=== PATIENT | female | born 1990 | race Caucasian/White ===

== ENCOUNTER 2017-02-05 13:29 | Outpatient (CLI) | payer MEDICAID ==
[2017-02-05 19:20] LABS: BASOPHILS # (AUTO) 0.1 10^3/uL (0.0-0.1); BASOPHILS % (AUTO) 0.8 %; EOSINOPHILS # (AUTO) 0.2 10^3/uL (0.0-0.7); EOSINOPHILS % (AUTO) 1.3 %; HCT - HEMATOCRIT 42.6 % (37.0-47.0); HGB - HEMOGLOBIN 14.3 g/dL (12.0-16.0); IMMATURE RETIC FRACTION 0.37; LYMPHOCYTES # (AUTO) 3.1 10^3/uL (1.5-3.5); LYMPHOCYTES % (AUTO) 24.6 %; MEAN CORPUSCULAR HEMOGLOBIN 32.5 pg (27.0-31.0); MEAN CORPUSCULAR HGB CONC 33.5 g/dL (32.0-36.0); MEAN PLATELET VOLUME 9.6 fL (7.9-10.8); MONOCYTES # (AUTO) 0.5 10^3/uL (0.0-1.0); MONOCYTES % (AUTO) 4.4 %; NEUTROPHILS # (AUTO) 8.6 10^3/uL (1.5-6.6); NEUTROPHILS % (AUTO) 68.9 %; NUCLEATED RED BLOOD CELLS AUTO 0.1 /100WBC; RED BLOOD COUNT 4.39 10^6/uL (4.20-5.40); RED CELL DISTRIBUTION WIDTH 12.8 % (12.0-15.0); UNCORRECTED WHITE BLOOD COUNT 12.5 x10^3/uL; WHITE BLOOD COUNT 12.5 x10^3/uL (4.8-10.8)
[2017-02-05 19:25] LABS: CHOL/HDL RATIO 3.7 (<4.4); CHOLESTEROL 163 mg/dL; HDL CHOLESTEROL 44 mg/dL; IRON 78 ug/dL (28-170); LDL/HDL RATIO 1.7 (<4.4); TOTAL IRON BINDING CAPACITY 426 ug/dL (250-450); TRANSFERRIN 304 mg/dL (192-382); TRIGLYCERIDES 222 mg/dL; VLDL CHOLESTEROL 44 mg/dL
[2017-02-05 19:44] LABS: FERRITIN 22.5 ng/mL (11.0-306.8)
[2017-02-05 19:57] LABS: THYROID STIMULATING HORMONE 0.93 uIU/mL (0.34-5.60)
== END 2017-02-05 23:59 | disposition home or self-care (01) ==
LOC: LAB.N 13:29
PROVIDERS: ATTEND Physician Assistant
DX: R51 Headache (principal)
CPT/HCPCS: 36415; 80061; 82607; 82728; 83540; 84439; 84443; 84466; 84481; 85025; 85044

== ENCOUNTER 2017-05-27 17:27 | Outpatient (CLI) | payer MEDICAID ==
--- NOTE | 2017-05-28 10:47 | Ultrasound Report ---
RIGHT UPPER QUADRANT ULTRASOUND: 05/27/2017 CLINICAL INDICATION: Epigastric and right upper quadrant pain. TECHNIQUE: Real-time scanning was performed with footwear sales representative static images obtained. FINDINGS: The liver measures 18.7 cm. Hepatic echogenicity is diffusely increased, compatible with fatty infiltration. No focal parenchymal lesion or intrahepatic biliary dilatation is present. The common bile duct measures 6 mm. The gallbladder is normal. The right kidney measures 10.7 cm, and d emonstrates no hydronephrosis. No free fluid is seen. IMPRESSION: FATTY INFILTRATION OF THE LIVER. NO EVIDENCE OF CHOLELITHIASIS OR BILIARY OBSTRUCTION. JOB #: [id number] EXT JOB #:[id number]
== END 2017-05-27 17:28 | disposition home or self-care (01) ==
LOC: DI 17:27
PROVIDERS: ATTEND Physician Assistant Medical
DX: K76.0 Fatty (change of) liver, not elsewhere classified (principal)
CPT/HCPCS: 76705

== ENCOUNTER 2017-06-06 15:58 | Outpatient (CLI) | payer MEDICAID ==
[2017-06-06 13:25] LABS: BILIRUBIN,DIRECT 0.1 mg/dL (0.1-0.5); BILIRUBIN,TOTAL 0.6 mg/dL (0.2-1.0); TOTAL PROTEIN 7.2 g/dL (6.7-8.2)
== END 2017-06-06 15:59 | disposition home or self-care (01) ==
LOC: LAB.N 15:58
PROVIDERS: ATTEND Physician Assistant Medical
DX: R10.13 Epigastric pain (principal); R10.11 Right upper quadrant pain
CPT/HCPCS: 36415; 80076; 83690

== ENCOUNTER 2017-07-02 15:24 | Outpatient (CLI) | payer MEDICAID | END 2017-07-02 15:25 | disposition home or self-care (01) | LOC: LAB.N 15:24 | PROVIDERS: ATTEND Physician Assistant Medical | DX: K30 Functional dyspepsia (principal); R10.13 Epigastric pain; R11.2 Nausea with vomiting, unspecified | CPT/HCPCS: 83013 ==

== ENCOUNTER 2017-09-21 15:59 | Emergency (ER) | payer MEDICAID ==
--- NOTE | 2017-09-21 16:13 | ED Physician Documentation ---
PD HPI ABD PAIN - Stated complaint Stated Complaint: ABD CRAMPING/7 WKS PREG - Chief complaint Chief Complaint: Abd Pain - History obtained from History obtained from: Patient - History of Present Illness Timing - onset: Other (P2, LMP 12-21, she has had pelvic cramping radiating to the right upper quadrants for the last 5 hours. Note made that she had an ultrasound a few months ago for abdominal pains that was negative per her without gallstones. No bleeding. She declines pain medication.) Review of Systems Constitutional: reports: Reviewed and negative Throat: reports: Reviewed and negative Cardiac: reports: Reviewed and negative Respiratory: reports: Reviewed and negative PD PAST MEDICAL HISTORY - Past Medical History Respiratory: Asthma - Past Surgical History Past Surgical History: No - Present Medications Home Medications: Ambulatory Orders Medication Instructions Recorded Confirmed Benzonatate [Tessalon Perle] 100 mg PO Q8H PRN #20 capsule 10/31/14 Control Pills 10/31/14 10/31/14 guaiFENesin/CODEINE [Robitussin AC] 10 ml PO Q6H PRN #120 ml 10/31/14 - Allergies Allergies/Adverse Reactions: Allergies Allergy/AdvReac Type Severity Reaction Status Date / Time latex AdvReac Mild Rash Verified 10/03/15 15:02 - Social History Does the pt smoke?: No Smoking Status: Former smoker Does the pt drink ETOH?: Yes Does the pt have substance abuse?: No PD ED PE NORMAL - Vitals Vital signs reviewed: Yes - General General: Alert and oriented X 3, No acute distress - Respiratory Respiratory: No respiratory distress, Clear bilaterally - Abdomen Abdomen: Normal bowel sounds, Soft, Non tender - Female Female : Other (Pelvic ultrasound demonstrates a full uterus but I am unable to make out details of an intrauterine . There is no free fluid.) - Back Back: No CVA TTP, No spinal TTP - Derm Derm: Normal color, Warm and dry - Extremities Extremities: No deformity, No tenderness to palpate - Neuro Neuro: Alert and oriented X 3, Normal speech - Psych Psych: Normal mood, Normal affect Results - Vitals Vitals: Vital Signs - 24 hr 09/21/17 09/21/17 09/21/17 16:05 16:10 17:24 Temperature 36.7 C Heart Rate 93 87 Respiratory 19 16 Rate Blood Pressure 156/113 H 120/72 O2 Saturation 97 100 Oxygen O2 Source Nasal cannula - Labs Labs: Laboratory Tests 09/21/17 09/21/17 09/21/17 16:33 16:33 16:33 WBC 12.5 H RBC 4.50 Hgb 14.6 Hct 42.3 MCV 94.1 MCH 32.5 H MCHC 34.6 RDW 12.5 Plt Count 256 MPV 9.2 Neut # 8.1 H Lymph # 3.4 [place] # 0.7 Eos # 0.2 Baso # 0.1 Absolute Nucleated RBC 0.00 Nucleated RBC % 0.0 Sodium 134 L Potassium 3.4 L Chloride 104 Carbon Dioxide 21 Anion Gap 9.0 BUN 10 Creatinine 0.6 Estimated GFR (MDRD) 119 Glucose 100 Calcium 9.1 Total Bilirubin 0.5 AST 35 ALT 53 Alkaline Phosphatase 63 Total Protein 7.7 Albumin 4.8 Globulin 2.9 Albumin/Globulin Ratio 1.7 Lipase 29 HCG, Quant 96472.00 Urine Color Urine Clarity Urine pH Ur Specific [place] Urine Protein Urine Glucose (UA) Urine Ketones Urine Occult Blood Urine Nitrite Urine Bilirubin Urine Urobilinogen Ur Leukocyte Esterase Ur Microscopic Review Urine Culture Comments 09/21/17 16:53 WBC RBC Hgb Hct MCV MCH MCHC RDW Plt Count MPV Neut # Lymph # [place] # Eos # Baso # Absolute Nucleated RBC Nucleated RBC % Sodium Potassium Chloride Carbon Dioxide Anion Gap BUN Creatinine Estimated GFR (MDRD) Glucose Calcium Total Bilirubin AST ALT Alkaline Phosphatase Total Protein Albumin Globulin Albumin/Globulin Ratio Lipase HCG, Quant Urine Color LT. YELLOW Urine Clarity CLEAR Urine pH 6.0 Ur Specific [place] 1.025 Urine Protein NEGATIVE Urine Glucose (UA) NEGATIVE Urine Ketones NEGATIVE Urine Occult Blood NEGATIVE Urine Nitrite NEGATIVE Urine Bilirubin NEGATIVE Urine Urobilinogen 0.2 (NORMAL) Ur Leukocyte Esterase NEGATIVE Ur Microscopic Review NOT INDICATED Urine Culture Comments NOT INDICATED - Rads (name of study) Pelvic sono Radiology: EMP read contemporaneously (Single viable IUP, 6 weeks and 2 days) PD MEDICAL DECISION MAKING - ED course ED course: She is abdominal and pelvic pain in , it is more on the right than the left but she is nontender either on initial evaluation and on repeat examination prior to discharge. She does have a little bit of a white count but the story is also inconsistent with appendicitis given the sudden onset. Departure - Departure Disposition: 01 Home, Self Care Clinical Impression: Abdominal pain Qualifiers: Abdominal location: lower abdomen, unspecified Qualified Code(s): R10.30 - Lower abdominal pain, unspecified Qualifiers: Weeks of gestation: less than 8 weeks Qualified Code(s): Z3A.01 - Less than 8 weeks gestation of Condition: Good Record reviewed to determine appropriate education?: Yes Instructions: ED Preg Established Normal Sxs Comments: Follow-up with your OB in a few weeks, take vitamins. Return if worse. Discharge Date/Time: 09/21/17 18:17
[2017-09-21 16:45] LABS: BASOPHILS # (AUTO) 0.1 10^3/uL (0.0-0.1); BASOPHILS % (AUTO) 0.6 %; EOSINOPHILS # (AUTO) 0.2 10^3/uL (0.0-0.7); EOSINOPHILS % (AUTO) 1.2 %; HGB - HEMOGLOBIN 14.6 g/dL (12.0-16.0); LYMPHOCYTES # (AUTO) 3.4 10^3/uL (1.5-3.5); LYMPHOCYTES % (AUTO) 27.2 %; MEAN CORPUSCULAR HEMOGLOBIN 32.5 pg (27.0-31.0); MEAN CORPUSCULAR HGB CONC 34.6 g/dL (32.0-36.0); MEAN CORPUSCULAR VOLUME 94.1 fL (81.0-99.0); MEAN PLATELET VOLUME 9.2 fL (7.9-10.8); MONOCYTES # (AUTO) 0.7 10^3/uL (0.0-1.0); MONOCYTES % (AUTO) 5.7 %; NEUTROPHILS # (AUTO) 8.1 10^3/uL (1.5-6.6); NEUTROPHILS % (AUTO) 65.3 %; PLT - PLATELET COUNT 256 10^3/uL (130-450); RED CELL DISTRIBUTION WIDTH 12.5 % (12.0-15.0); WHITE BLOOD COUNT 12.5 x10^3/uL (4.8-10.8)
[2017-09-21 16:53] LABS: ALBUMIN 4.8 g/dL (3.2-5.5); ALBUMIN/GLOBULIN RATIO 1.7 (1.0-2.2); BILIRUBIN,TOTAL 0.5 mg/dL (0.2-1.0); CALCIUM 9.1 mg/dL (8.5-10.3); CREATININE 0.6 mg/dL (0.4-1.0); TOTAL PROTEIN 7.7 g/dL (6.7-8.2)
[2017-09-21 16:55] LABS: BILIRUBIN,URINE NEGATIVE (NEGATIVE); GLUCOSE, URINE (UA) NEGATIVE (NEGATIVE); KETONES,URINE (UA) NEGATIVE (NEGATIVE); LEUKOCYTE ESTERASE, URINE NEGATIVE (NEGATIVE); NITRITE,URINE NEGATIVE (NEGATIVE); OCCULT BLOOD,URINE NEGATIVE (NEGATIVE); PROTEIN,URINE NEGATIVE (NEGATIVE); UROBILINOGEN,URINE 0.2 (NORMAL) E.U./dL (NORMAL)
[2017-09-21 17:00] LABS: CLARITY,URINE CLEAR (CLEAR)
[2017-09-21 17:29] VITALS: BP 120/72
--- NOTE | 2017-09-21 18:25 | Ultrasound Preliminary Report ---
Exam: US OB FIRST TRIMESTER IMPRESSION: 1. Single viable intrauterine at EGA 6 weeks 2 days with ELZA 05/15/2018 based on crown-rump length, which is concordant with expected dates based on LMP. 2. Assigned dating is ELZA 05/15/2018 based on LMP. [facility] SITE ID: [id number]
--- NOTE | 2017-09-21 18:25 | Ultrasound Report ---
EXAM: FIRST TRIMESTER OBSTETRIC ULTRASOUND (Less than 11 weeks) EXAM DATE: 09/21/2017 06:04 PM. CLINICAL HISTORY: . Pelvic pain. LMP: 08/08/2017. COMPARISONS: None. TECHNIQUE: Transabdominal and transvaginal ultrasound examination with static image documentation. CLINICAL DATES: EGA 6 weeks 2 days with ELZA 05/15/2018 based on LMP 08/08/2017. ASSESSMENT: Gestational Sac: Single intrauterine. Normal shape. Embryo: CRL (crown-rump length) 4 mm = 6 weeks 2 days. Cardiac activity: 127 beats per minute. Yolk sac: 3 mm. Amniotic fluid: Not accurately assessed at this gestational age. Early placenta: Not visible at this gestational age. Other: No perigestational fluid collection demonstrated. MATERNAL STRUCTURES: Uterus: Retroverted. Unremarkable. Cervix: Closed. Right Ovary/Adnexa: Unremarkable. The ovary measures 3.6 x 1.6 x 2.0 cm, volume 6.0 cc. Left Ovary/Adnexa: Unremarkable. The ovary is not visualized. Free Fluid: None. Other: None. IMPRESSION: 1. Single viable intrauterine at EGA 6 weeks 2 days with ELZA 05/15/2018 based on crown-rump length, which is concordant with expected dates based on LMP. 2. Assigned dating is ELZA 05/15/2018 based on LMP. [facility] Referring Provider Line: [phone] SITE ID: [id number]
== END 2017-09-21 18:17 | disposition home or self-care (01) ==
LOC: ED 15:59
DX: O26.891 Other specified pregnancy related conditions, first trimester (principal); R10.30 Lower abdominal pain, unspecified; Z3A.01 Less than 8 weeks gestation of pregnancy; J45.909 Unspecified asthma, uncomplicated; Z87.891 Personal history of nicotine dependence
CPT/HCPCS: 36415; 76801; 76817; 80053; 81001; 81003; 83690; 84702; 85025; 87086; 99283

== ENCOUNTER 2017-10-08 10:00 | Outpatient (CLI) | payer MEDICAID ==
[2017-10-08 13:15] LABS: BASOPHILS # (AUTO) 0.1 10^3/uL (0.0-0.1); BASOPHILS % (AUTO) 0.6 %; EOSINOPHILS # (AUTO) 0.3 10^3/uL (0.0-0.7); EOSINOPHILS % (AUTO) 2.9 %; LYMPHOCYTES # (AUTO) 2.5 10^3/uL (1.5-3.5); LYMPHOCYTES % (AUTO) 22.1 %; MEAN CORPUSCULAR HEMOGLOBIN 33.1 pg (27.0-31.0); MEAN CORPUSCULAR HGB CONC 35.2 g/dL (32.0-36.0); MEAN CORPUSCULAR VOLUME 93.9 fL (81.0-99.0); MEAN PLATELET VOLUME 9.7 fL (7.9-10.8); MONOCYTES # (AUTO) 0.5 10^3/uL (0.0-1.0); MONOCYTES % (AUTO) 4.5 %; NEUTROPHILS # (AUTO) 7.9 10^3/uL (1.5-6.6); NEUTROPHILS % (AUTO) 69.9 %; PLT - PLATELET COUNT 231 10^3/uL (130-450); RED BLOOD COUNT 4.23 10^6/uL (4.20-5.40); RED CELL DISTRIBUTION WIDTH 12.5 % (12.0-15.0); WHITE BLOOD COUNT 11.3 x10^3/uL (4.8-10.8)
[2017-10-09 12:31] LABS: HIV AG/AB 4TH GEN NON-REACTIVE (NON-REACTIVE)
[2017-10-09 14:01] LABS: HEPATITIS B SURFACE ANTIGEN NON-REACTIVE (NON-REACTIVE); HEPATITIS C ANTIBODY NON-REACTIVE (NON-REACTIVE)
== END 2017-10-08 10:01 | disposition home or self-care (01) ==
LOC: LAB.N 10:00
PROVIDERS: ATTEND Obstetrics & Gynecology
DX: Z36.9 Encounter for antenatal screening, unspecified (principal)
CPT/HCPCS: 36415; 81001; 81003; 81599; 85025; 86592; 86762; 86803; 86850; 86900; 86901; 87340; 87389

== ENCOUNTER 2017-11-05 09:09 | Outpatient (CLI) | payer MEDICAID | END 2017-11-05 09:10 | disposition home or self-care (01) | LOC: LAB 09:09 | PROVIDERS: ATTEND Obstetrics & Gynecology | DX: Z36.9 Encounter for antenatal screening, unspecified (principal) | CPT/HCPCS: 36415 ==

== ENCOUNTER 2018-02-06 07:38 | Outpatient (CLI) | payer MEDICAID ==
--- NOTE | 2018-02-06 13:08 | Ultrasound Report ---
Procedure Date: 02/06/2018 Accession Number: [id number] / [id number] Procedure: US - OB Detailed Eval CPT Code: FULL RESULT: EXAM: OB Detailed Eval DATE: 02/06/2018 11:30 AM CLINICAL HISTORY: ENCOUNTER FOR OTHER SPECIFIED SCREENING TECHNIQUE: Real-time scanning was performed with customer counter representative static images obtained. COMPARISON: None LAST MENSTRUAL PERIOD: 09/21/2017 Clinical Age: 26 weeks 0 days US Age: 26 weeks 4 days EFW Hadlock: 971 grams EFW % Hadlock: 61% Heart Rate: 137 bpm EDC: 05/15/2018 US EDC: 05/11/2018 BPD Hadlock: 27 weeks 2 days; Mean mm 68 HC Hadlock: 27 weeks 0 days; Mean mm 249 AC Hadlock: 27 weeks 1 days; Mean mm 227 FL Hadlock: 26 weeks 0 days; Mean mm 48 Presentation: Breech Placental Location: Posterior Cervical Length: 4.6 cm Amniotic Fluid: TATYANA Subjectively normal cm; MVP 6.0 cm FINDINGS: The following anatomic structures were imaged and appear normal: The intracranial contents, including the ventricles and posterior fossa; the lips and orbits; the spine; the heart, including 4 chamber view and outflow tracts, and diaphragm; the abdominal contents, including the stomach, the bilateral kidneys, and urinary bladder, as well as a normal 3-vessel cord insertion; 4 limbs. IMPRESSION: Single intrauterine gestation age by composite ultrasound measurements today and expected age by LMP are concordant. EDC based on LMP 05/15/2018. No anatomic anomalies are identified.
== END 2018-02-06 07:39 | disposition home or self-care (01) ==
LOC: DI 07:38
PROVIDERS: ATTEND Obstetrics & Gynecology
DX: Z36.89 Encounter for other specified antenatal screening (principal)
CPT/HCPCS: 76811

== ENCOUNTER 2018-05-18 12:24 | Emergency (ER) | payer MEDICAID ==
[2018-05-18] MEDS ORDERED: oxyCODONE 5 MG TABLET PO STA (13:12)
--- NOTE | 2018-05-18 13:26 | ED Physician Documentation ---
History of Present Illness - Stated complaint Stated Complaint: POST CESEREAN PAIN - Chief complaint Chief Complaint: Wound - Additonal information Additional information: hx from pt 5 days s/p emergent c section and demise surgery at [facility] to ER today with post op pain out of ehr percocet has fup Saturday no fever bleeding has slowed to 1 pad per day no foul smelling discharge Review of Systems Constitutional: denies: Fever Cardiac: denies: Chest pain / pressure Respiratory: denies: Dyspnea GI: reports: Abdominal Pain : denies: Now EGA PD PAST MEDICAL HISTORY - Past Medical History Respiratory: Asthma - Past Surgical History 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 - Present Medications Home Medications: Ambulatory Orders Medication Instructions Recorded Confirmed Ibuprofen 800 mg PO TID 05/18/18 05/18/18 Oxycodone HCl/Acetaminophen 1 each PO Q6HR PRN #15 tablet 05/18/18 [Percocet 5-325 mg Tablet] oxyCODONE/ACET 5/325 [Percocet 5 1 each PO Q4-6H 05/18/18 05/18/18 mg/325 mg] - Allergies Allergies/Adverse Reactions: Allergies Allergy/AdvReac Type Severity Reaction Status Date / Time latex AdvReac Mild Rash Verified 10/03/15 15:02 adhesive tape AdvReac Rash Verified 05/18/18 12:47 - Social History Does the pt smoke?: No Smoking Status: Never smoker Does the pt drink ETOH?: Yes Does the pt have substance abuse?: No - Immunizations Immunizations are current?: Yes - POLST Patient has POLST: No PD ED PE NORMAL - Vitals Vital signs reviewed: Yes - Abdomen Abdomen: Soft, Other (tender lower abd - uterus palpates about 2/3 wa to umbilicus and is mod TTP) - Derm Derm: Normal color Results - Vitals Vitals: Vital Signs - 24 hr 05/18/18 12:42 Temperature 37 C Heart Rate 75 Respiratory 18 Rate Blood Pressure 137/83 H O2 Saturation 98 Oxygen O2 Source Room air PD MEDICAL DECISION MAKING - ED course ED course: post op pain abd TTP and uterus a bit enlarged but no fever and incision looks good and doubt retained product or endometritis will tx pain and pt has close speciality follow up - Sepsis Event Vital Signs: Vital Signs - 24 hr 05/18/18 12:42 Temperature 37 C Heart Rate 75 Respiratory 18 Rate Blood Pressure 137/83 H O2 Saturation 98 Oxygen O2 Source Room air Departure - Departure Disposition: 01 Home, Self Care Clinical Impression: Post-operative pain Condition: Good Instructions: ED Post Op Pain Prescriptions: Oxycodone HCl/Acetaminophen [Percocet 5-325 mg Tablet] 1 each PO Q6HR PRN #15 tablet PRN Reason: Severe Pain Comments: This incision does not appear infected Your uterus still feels enlarged But you wouldn't have retained placenta etc after a I have refilled your percocet. You can also take motrin as needed Please follow up with your OBGYN this week as scheduled
[2018-05-18 13:33] VITALS: BP 132/70
== END 2018-05-18 13:33 | disposition home or self-care (01) ==
LOC: ED 12:24
DX: G89.18 Other acute postprocedural pain (principal)
CPT/HCPCS: 99283; A9270

== ENCOUNTER 2018-08-18 11:50 | Emergency (ER) | payer MEDICAID ==
--- NOTE | 2018-08-18 12:16 | ED Physician Documentation ---
PD HPI ABD PAIN - Stated complaint Stated Complaint: LEFT SIDE PX - History obtained from History obtained from: Patient - History of Present Illness Timing - onset: Other (28-year-old woman with about 2 days of increasing left flank pain radiating to the left pelvis associated with urinary frequency and nausea but no fevers. She wonders if it might be related to the stat she had a few months ago.) Review of Systems Constitutional: denies: Fever, Chills Respiratory: denies: Dyspnea, Cough GI: reports: Abdominal Pain, Nausea. denies: Vomiting, Constipation, Diarrhea, Hematemesis : reports: Frequency. 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 - Present Medications Home Medications: Ambulatory Orders Medication Instructions Recorded Confirmed Ibuprofen 800 mg PO TID 05/18/18 05/18/18 Oxycodone HCl/Acetaminophen 1 each PO Q6HR PRN #15 tablet 05/18/18 [Percocet 5-325 mg Tablet] oxyCODONE/ACET 5/325 [Percocet 5 1 each PO Q4-6H 05/18/18 05/18/18 mg/325 mg] Hydrocodone/Acetaminophen 1 - 2 each PO Q6H PRN #14 tablet 08/18/18 [Hydrocodon-Acetaminophen 5-325] - Allergies Allergies/Adverse Reactions: Allergies Allergy/AdvReac Type Severity Reaction Status Date / Time latex AdvReac Mild Rash Verified 10/03/15 15:02 adhesive tape AdvReac Rash Verified 05/18/18 12:47 - Social History Does the pt smoke?: No Smoking Status: Never smoker Does the pt drink ETOH?: Yes Does the pt have substance abuse?: No - Immunizations Immunizations are current?: Yes - POLST Patient has POLST: No PD ED PE NORMAL - Vitals Vital signs reviewed: Yes - General General: Alert and oriented X 3, No acute distress - Respiratory Respiratory: No respiratory distress, Clear bilaterally - Abdomen Abdomen: Normal bowel sounds, Soft, Non tender - Back Back: No CVA TTP, No spinal TTP - Neuro Neuro: Alert and oriented X 3, Normal speech - Psych Psych: Normal mood, Normal affect Results - Vitals Vitals: Vital Signs - 24 hr 08/18/18 13:25 Temperature 36.3 C L Heart Rate 88 Respiratory 18 Rate Blood Pressure 135/72 H O2 Saturation 100 Oxygen O2 Source Room air - Labs Labs: Laboratory Tests 08/18/18 08/18/18 08/18/18 12:13 13:45 13:45 WBC 8.8 RBC 4.46 Hgb 14.1 Hct 40.7 MCV 91.2 MCH 31.6 H MCHC 34.7 RDW 14.8 Plt Count 268 MPV 8.8 Neut # (Auto) 6.0 Lymph # (Auto) 2.1 [place] # (Auto) 0.6 Eos # (Auto) 0.1 Baso # (Auto) 0.1 Absolute Nucleated RBC 0.00 Nucleated RBC % 0.0 Sodium 137 Potassium 3.7 Chloride 103 Carbon Dioxide 25 Anion Gap 9.0 BUN 11 Creatinine 0.8 Estimated GFR (MDRD) 85 L Glucose 99 Calcium 9.2 Total Bilirubin 0.8 AST 34 ALT 42 Alkaline Phosphatase 71 Total Protein 7.4 Albumin 4.5 Globulin 2.9 Albumin/Globulin Ratio 1.6 Lipase 40 Urine Color YELLOW Urine Clarity CLEAR Urine pH 7.0 Ur Specific [place] 1.010 Urine Protein NEGATIVE Urine Glucose (UA) NEGATIVE Urine Ketones NEGATIVE Urine Occult Blood NEGATIVE Urine Nitrite NEGATIVE Urine Bilirubin NEGATIVE Urine Urobilinogen 0.2 (NORMAL) Ur Leukocyte Esterase NEGATIVE Ur Microscopic Review NOT INDICATED Urine Culture Comments NOT INDICATED Urine HCG, Qual NEGATIVE - Rads (name of study) CT KUB Radiology: EMP read contemporaneously (NAD) PD MEDICAL DECISION MAKING - ED course ED course: 28-year-old woman with left flank pain that seems most consistent with renal colic or pyelonephritis. She has a normal exam. Unremarkable blood work and urine. An unremarkable CT abdomen and pelvis. Could Be muscular. Close watchful waiting was advised. Departure - Departure Disposition: 01 Home, Self Care Clinical Impression: Left flank pain Condition: Good Record reviewed to determine appropriate education?: Yes Instructions: ED Abdominal Pain Unkn Cause Prescriptions: Hydrocodone/Acetaminophen [Hydrocodon-Acetaminophen 5-325] 1 - 2 each PO Q6H PRN #14 tablet PRN Reason: pain Comments: Return for new or worsening symptoms. Return in 24 hours if not better, anytime if worse. Do not drink or drive while taking narcotic pain medication. Note that many narcotic pain relievers also contain Tylenol/acetaminophen. Please ensure that your total dose of acetaminophen from all sources does not exceed 3 g (3000 mg) per day. You may get constipated while on this medication. Take a stool softener such as Colace twice a day while you are on it. Also add an [id number] laxative such as senna or MiraLAX on any day that you do not have a bowel movement. If you received a narcotic pain medication or sedative while in the emergency department, do not drive for the next 24 hours.
[2018-08-18 12:31] LABS: BILIRUBIN,URINE NEGATIVE (NEGATIVE); CLARITY,URINE CLEAR (CLEAR); GLUCOSE, URINE (UA) NEGATIVE (NEGATIVE); KETONES,URINE (UA) NEGATIVE (NEGATIVE); LEUKOCYTE ESTERASE, URINE NEGATIVE (NEGATIVE); NITRITE,URINE NEGATIVE (NEGATIVE); OCCULT BLOOD,URINE NEGATIVE (NEGATIVE); PROTEIN,URINE NEGATIVE (NEGATIVE); UROBILINOGEN,URINE 0.2 (NORMAL) E.U./dL (NORMAL)
[2018-08-18 12:38] LABS: HCG UR QUAL NEGATIVE
[2018-08-18] MEDS ORDERED: IBUPROFEN 800 MG TABLET PO STA (12:40)
--- NOTE | 2018-08-18 13:35 | CT Report ---
Reason: L flank pain Procedure Date: 08/18/2018 Accession Number: [id number] / [id number] Procedure: CT - Abdomen/Pelvis W/O CPT Code: FULL RESULT: EXAM: CT ABDOMEN AND PELVIS (CT KUB) EXAM DATE: 08/18/2018 01:15 PM. CLINICAL HISTORY: L flank pain. COMPARISONS: None. TECHNIQUE: Routine axial helical CT imaging was performed through the abdomen and pelvis without IV contrast. Reconstructions: Coronal and sagittal. In accordance with CT protocol optimization, one or more of the following dose reduction techniques were utilized for this exam: automated exposure control, adjustment of mA and/or KV based on patient size, or use of iterative reconstructive technique. FINDINGS: Lung Bases: Unremarkable. Right Kidney/Ureter: No stones, hydronephrosis, or hydroureter. No perinephric fat stranding. Left Kidney/Ureter: No stones, hydronephrosis, or hydroureter. No perinephric fat stranding. Other Solid Organs: The liver measures 19 cm cranial caudal. Liver parenchyma is diffusely low in density with focal fatty sparing around the gallbladder. Spleen, pancreas and adrenal glands are unremarkable. Gallbladder/Bile Ducts: Unremarkable. Peritoneal Cavity: No free fluid, free air or tiffany adenopathy. Bowel is grossly unremarkable. Pelvic Organs: Uterus is anteverted. Ovaries appear overall normal in size for age. No abnormal pelvic fluid collection. The appendix is visualized and appears normal. Vasculature: Unremarkable. Other: None. IMPRESSION: 1. No urolithiasis or hydronephrosis. 2. No CT finding to explain symptoms. 3. Steatosis of the liver. RADIA
[2018-08-18 13:59] LABS: BASOPHILS # (AUTO) 0.1 10^3/uL (0.0-0.1); BASOPHILS % (AUTO) 0.9 %; EOSINOPHILS # (AUTO) 0.1 10^3/uL (0.0-0.7); EOSINOPHILS % (AUTO) 1.1 %; HGB - HEMOGLOBIN 14.1 g/dL (12.0-16.0); LYMPHOCYTES # (AUTO) 2.1 10^3/uL (1.5-3.5); LYMPHOCYTES % (AUTO) 23.7 %; MEAN CORPUSCULAR HEMOGLOBIN 31.6 pg (27.0-31.0); MEAN CORPUSCULAR HGB CONC 34.7 g/dL (32.0-36.0); MEAN CORPUSCULAR VOLUME 91.2 fL (81.0-99.0); MEAN PLATELET VOLUME 8.8 fL (7.9-10.8); MONOCYTES # (AUTO) 0.6 10^3/uL (0.0-1.0); MONOCYTES % (AUTO) 6.3 %; PLT - PLATELET COUNT 268 10^3/uL (130-450); RED BLOOD COUNT 4.46 10^6/uL (4.20-5.40); RED CELL DISTRIBUTION WIDTH 14.8 % (12.0-15.0); WHITE BLOOD COUNT 8.8 x10^3/uL (4.8-10.8)
[2018-08-18 14:13] LABS: ALBUMIN 4.5 g/dL (3.2-5.5); ALBUMIN/GLOBULIN RATIO 1.6 (1.0-2.2); BILIRUBIN,TOTAL 0.8 mg/dL (0.2-1.0); CALCIUM 9.2 mg/dL (8.5-10.3); CREATININE 0.8 mg/dL (0.4-1.0); TOTAL PROTEIN 7.4 g/dL (6.7-8.2)
[2018-08-18] MEDS ORDERED: HYDROcod/ACETAM 5/325 MG TABLET PO STA (14:20)
[2018-08-18 14:22] VITALS: BP 129/73
== END 2018-08-18 14:30 | disposition home or self-care (01) ==
LOC: ED 11:50
DX: R10.9 Unspecified abdominal pain (principal)
CPT/HCPCS: 36415; 74176; 80053; 81003; 81025; 83690; 85025; 99283; A9270; 81001; 87086

== ENCOUNTER 2018-09-16 17:26 | Outpatient (CLI) | payer MEDICAID | END 2018-09-16 23:59 | disposition home or self-care (01) | LOC: LAB.R 17:26 | PROVIDERS: ATTEND Nurse Practitioner Obstetrics & Gynecology | DX: R10.814 Left lower quadrant abdominal tenderness (principal); B37.3 Candidiasis of vulva and vagina; O90.0 Disruption of cesarean delivery wound | CPT/HCPCS: 87086; 87480; 87510; 87660 ==

== ENCOUNTER 2018-09-17 08:00 | Outpatient (CLI) | payer MEDICAID ==
[2018-09-17 13:01] LABS: BASOPHILS # (AUTO) 0.1 10^3/uL (0.0-0.1); BASOPHILS % (AUTO) 1.2 %; EOSINOPHILS # (AUTO) 0.3 10^3/uL (0.0-0.7); EOSINOPHILS % (AUTO) 3.6 %; HGB - HEMOGLOBIN 14.6 g/dL (12.0-16.0); LYMPHOCYTES # (AUTO) 2.4 10^3/uL (1.5-3.5); MEAN CORPUSCULAR HEMOGLOBIN 31.3 pg (27.0-31.0); MEAN CORPUSCULAR HGB CONC 33.8 g/dL (32.0-36.0); MEAN CORPUSCULAR VOLUME 92.7 fL (81.0-99.0); MEAN PLATELET VOLUME 10.1 fL (7.9-10.8); MONOCYTES # (AUTO) 0.5 10^3/uL (0.0-1.0); NEUTROPHILS # (AUTO) 5.2 10^3/uL (1.5-6.6); NEUTROPHILS % (AUTO) 61.2 %; PLT - PLATELET COUNT 247 10^3/uL (130-450); RED BLOOD COUNT 4.66 10^6/uL (4.20-5.40); RED CELL DISTRIBUTION WIDTH 14.5 % (12.0-15.0); WHITE BLOOD COUNT 8.5 x10^3/uL (4.8-10.8)
== END 2018-09-17 23:59 | disposition home or self-care (01) ==
LOC: LAB.N 08:00
PROVIDERS: ATTEND Nurse Practitioner Obstetrics & Gynecology
DX: R10.814 Left lower quadrant abdominal tenderness (principal); O90.0 Disruption of cesarean delivery wound
CPT/HCPCS: 36415; 84702; 85025

== ENCOUNTER 2018-09-18 04:51 | Outpatient (CLI) | payer MEDICAID ==
--- NOTE | 2018-09-18 11:35 | Ultrasound Report ---
Reason: ABDOMINAL TENDERNESS,LEFT LOWER QUADRANT,DISRUPTIO Procedure Date: 09/18/2018 Accession Number: [id number] / [id number] Procedure: US - Pelvic w/Transvaginal CPT Code: FULL RESULT: EXAM: PELVIC ULTRASOUND EXAM DATE: 09/18/2018 05:48 AM. CLINICAL HISTORY: Abdominal tenderness, left lower quadrant. COMPARISON: ABDOMEN/PELVIS W/O 08/18/2018 1:01 PM. TECHNIQUE: Realtime transabdominal pelvic scan performed to identify the uterus and adnexa and as an overview of other pelvic structures, followed by transvaginal scan to provide greater detail of the uterus and adnexa, with static image documentation. FINDINGS: Uterus: 8.8 x 5.5 x 4.4 cm, volume 111 cc. Anteverted position. Normal overall size and echotexture. Masses: An anterior fundal fibroid, intramural measures 2.2 x 1.2 cm. Endometrium: 8 mm. Normal. Cervix: Unremarkable. Right Ovary: 3.8 x 2.0 x 2.1 cm, volume 8.3 cc. Normal echotexture and blood flow. Left Ovary: 2.7 x 2.9 x 1.9 cm, volume 10.6 cc. The left ovary is not well seen and the only visualized transabdominally due to its location. Within the left ovary is a 1.3 x 0.8 x 0.8 cm hyperechoic lesion which is not well characterized. Free Fluid: None. Other: None. IMPRESSION: Limited visualization of a hyperechoic 1.3 cm left ovarian lesion. RADIA
== END 2018-09-18 04:52 | disposition home or self-care (01) ==
LOC: DI 04:51
PROVIDERS: ATTEND Nurse Practitioner Obstetrics & Gynecology
DX: N83.9 Noninflammatory disorder of ovary, fallopian tube and broad ligament, unspecified (principal)
CPT/HCPCS: 76830; 76856

== ENCOUNTER 2018-09-25 15:12 | Outpatient (CLI) | payer MEDICAID ==
--- NOTE | 2018-09-25 17:51 | Ultrasound Report ---
Reason: LLQ PAIN, F/U LT OV Procedure Date: 09/25/2018 Accession Number: [id number] / [id number] Procedure: US - Pelvic Complete CPT Code: FULL RESULT: EXAM: PELVIC ULTRASOUND EXAM DATE: 09/25/2018 04:07 PM. CLINICAL HISTORY: LLQ PAIN, F/U LT OV. COMPARISON: 09/18/2018 TECHNIQUE: Realtime transabdominal pelvic scan performed to identify the uterus and adnexa and as an overview of other pelvic structures, patient refused transvaginal imaging. with static image documentation. FINDINGS: Uterus: 11.2 x 3.9 x 7.0 cm, volume 160 cc. Anteverted position. Normal overall size and echotexture. Masses: None. Endometrium: 3 mm. No focal endometrial abnormalities. Cervix: Unremarkable. Right Ovary: 3.2 x 2.0 x 2.5 cm, volume 8.2 cc. Blood flow is demonstrated. Left Ovary: 4.2 x 2.9 x 3.4 cm, volume 21.3 cc. Blood flow is demonstrated. Simple cyst measuring 2.4 cm. Previously described echogenic lesion is not visualized. Free Fluid: None. Other: None. IMPRESSION: No acute sonographic abnormalities. RADIA
== END 2018-09-25 15:13 | disposition home or self-care (01) ==
LOC: DI 15:12
PROVIDERS: ATTEND Nurse Practitioner Obstetrics & Gynecology
DX: R10.814 Left lower quadrant abdominal tenderness (principal)
CPT/HCPCS: 76856

== ENCOUNTER 2018-12-18 09:45 | Outpatient (CLI) | payer MEDICAID ==
--- NOTE | 2018-12-18 21:57 | XRAY Report ---
Reason: WRIST JOINT PAIN,RIGHT Procedure Date: 12/18/2018 Accession Number: [id number] / [id number] Procedure: XRN - Hand 3 View RT CPT Code: FULL RESULT: EXAM: RIGHT HAND RADIOGRAPHY EXAM DATE: 12/18/2018 10:02 AM. CLINICAL HISTORY: Right hand pain, fall COMPARISON: None. TECHNIQUE: 3 views. FINDINGS: Bones: Normal. No fractures or bone lesions. Joints: Normal. No subluxations. Soft Tissues: Normal. No soft tissue swelling. IMPRESSION: Normal hand radiography. RADIA
== END 2018-12-18 09:46 | disposition home or self-care (01) ==
LOC: DI.N 09:45
PROVIDERS: ATTEND Physician Assistant Medical
DX: M25.531 Pain in right wrist (principal)

== ENCOUNTER 2019-02-16 10:56 | Outpatient (CLI) | payer MEDICAID ==
[2019-02-16 18:45] LABS: MEAN CORPUSCULAR HEMOGLOBIN 32.5 pg (27.0-31.0); MEAN CORPUSCULAR HGB CONC 33.3 g/dL (32.0-36.0); MEAN CORPUSCULAR VOLUME 97.8 fL (81.0-99.0); MEAN PLATELET VOLUME 11.8 fL (7.9-10.8); RED BLOOD COUNT 4.61 10^6/uL (4.20-5.40); RED CELL DISTRIBUTION WIDTH 13.2 % (12.0-15.0); WHITE BLOOD COUNT 11.5 x10^3/uL (4.8-10.8)
[2019-02-16 18:52] LABS: RHEUMATOID FACTOR NEGATIVE (Negative)
[2019-02-18 12:36] LABS: ANA SCREEN NEGATIVE (NEGATIVE)
== END 2019-02-16 23:59 | disposition home or self-care (01) ==
LOC: LAB.N 10:56
PROVIDERS: ATTEND Family Medicine
DX: R10.9 Unspecified abdominal pain (principal); R19.7 Diarrhea, unspecified
CPT/HCPCS: 36415; 81599; 82784; 83516; 85027; 85651; 86038; 86140; 86430

== ENCOUNTER 2021-09-22 18:30 | Outpatient (CLI) | payer MEDICAID | END 2021-09-22 23:59 | disposition home or self-care (01) | LOC: LAB 18:30 | PROVIDERS: ATTEND Physician Assistant | DX: R09.81 Nasal congestion (principal); Z20.822 Contact with and (suspected) exposure to COVID-19 ==

== ENCOUNTER 2022-01-03 08:00 | Outpatient (CLI) | payer MEDICAID ==
[2022-01-03 17:44] LABS: BASOPHILS % (AUTO) 0.6 %; EOSINOPHILS % (AUTO) 0.6 %; HCT - HEMATOCRIT 37.2 % (37.0-47.0); HGB - HEMOGLOBIN 11.9 g/dL (12.0-16.0); LYMPHOCYTES # (AUTO) 0.3 10^3/uL (1.5-3.5); MEAN CORPUSCULAR HEMOGLOBIN 29.3 pg (27.0-31.0); MEAN CORPUSCULAR VOLUME 91.6 fL (81.0-99.0); MEAN PLATELET VOLUME 11.4 fL (7.9-10.8); MONOCYTES # (AUTO) 0.5 10^3/uL (0.0-1.0); MONOCYTES % (AUTO) 9.1 %; NEUTROPHILS # (AUTO) 4.2 10^3/uL (1.5-6.6); NEUTROPHILS % (AUTO) 84.5 %; PLT - PLATELET COUNT 278 10^3/uL (130-450); RED BLOOD COUNT 4.06 10^6/uL (4.20-5.40); RED CELL DISTRIBUTION WIDTH 14.1 % (12.0-15.0)
[2022-01-03 18:05] LABS: ALBUMIN 4.8 g/dL (3.2-5.5); ALBUMIN/GLOBULIN RATIO 1.7 (1.0-2.2); BILIRUBIN,TOTAL 0.8 mg/dL (0.2-1.0); CREATININE 0.8 mg/dL (0.4-1.0); POTASSIUM 3.6 mmol/L (3.5-5.0); TOTAL PROTEIN 7.7 g/dL (6.7-8.2)
== END 2022-01-04 23:36 | disposition home or self-care (01) ==
LOC: LAB.N 08:00
PROVIDERS: ATTEND Nurse Practitioner
DX: R10.2 Pelvic and perineal pain (principal)
CPT/HCPCS: 36415; 80053; 85025; 87086

== ENCOUNTER 2022-01-15 18:27 | Emergency (ER) | payer MEDICAID ==
--- OUTSIDE RECORDS SUMMARY | 2022-01-15 18:58 | EXTERNAL MEDICAL SUMMARY RPT | Continuity of Care Document ---
:1990 Author Organization [facility] Address [address] [place] [address] Phone Care Team Providers Name Role Phone [place] Unavailable Unavailable Allergies No information. Encounters No information. Medications date description facility [id number] Cephalexin 500 MG Oral Tablet [facility] Problems Procedures date description facility [id number] [facility] Results No information. Vital Signs date measurement value source 20220115 weight_standard 80.29 lb 20220115 weight_metric 36.42 kg 20220115 temperature_standard 98.5 F 20220115 temperature_metric 36.94 C 20220115 respiration_rate 18 /min 20220115 height_standard 64 in [id number] height_metric 162.56 cm 20220115 heart_rate 114 /min 20220115 BP_systolic 158 mm[Hg] 20220115 BP_diastolic 85 mm[Hg] 20220115 BMI 30.4 kg/m2
[2022-01-15] MEDS ORDERED: BACITRACIN ZINC OINT 1 PACKET TOP STA (19:55)
[2022-01-15] MEDS ORDERED: oxyCODONE 5 MG TABLET PO STA (19:55)
[2022-01-15] MEDS ORDERED: cephALEXin 250 MG CAPSULE PO STA (19:55)
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
[2022-01-15 20:25] VITALS: BP 130/80
== END 2022-01-15 20:24 | disposition home or self-care (01) ==
LOC: ED 18:27
DX: L03.114 Cellulitis of left upper limb (principal); L03.113 Cellulitis of right upper limb; T22.322A Burn of third degree of left elbow, initial encounter; T23.372A Burn of third degree of left wrist, initial encounter; T22.012A Burn of unspecified degree of left forearm, initial encounter; T22.011A Burn of unspecified degree of right forearm, initial encounter; T23.051A Burn of unspecified degree of right palm, initial encounter; T31.0 Burns involving less than 10% of body surface; X03.3XXA Fall due to controlled fire, not in building or structure, initial encounter; Y93.89 Activity, other specified; Y92.833 Campsite as the place of occurrence of the external cause
CPT/HCPCS: 16020; 99282; 99283; A9270

== ENCOUNTER 2022-02-26 16:30 | Outpatient (CLI) | payer MEDICAID | END 2022-02-26 16:31 | disposition home or self-care (01) | LOC: LAB.N 16:30 | PROVIDERS: ATTEND Physician Assistant Medical | DX: F41.9 Anxiety disorder, unspecified (principal) | CPT/HCPCS: 36415; 84443 ==

== ENCOUNTER 2023-05-06 11:18 | Outpatient (CLI) | payer MEDICAID | END 2023-05-06 11:19 | disposition EMS.NT | LOC: EMS 11:18 | DX: Z03.89 Encounter for observation for other suspected diseases and conditions ruled out (principal) ==

== ENCOUNTER 2023-08-29 08:00 | Outpatient (CLI) | payer MEDICAID ==
[2023-08-29 17:55] LABS: BASOPHILS # (AUTO) 0.1 10^3/uL (0.0-0.1); BASOPHILS % (AUTO) 1.4 %; EOSINOPHILS # (AUTO) 0.2 10^3/uL (0.0-0.7); EOSINOPHILS % (AUTO) 2.4 %; HCT - HEMATOCRIT 37.7 % (37.0-47.0); HGB - HEMOGLOBIN 11.5 g/dL (12.0-16.0); LYMPHOCYTES # (AUTO) 2.6 10^3/uL (1.5-3.5); LYMPHOCYTES % (AUTO) 37.2 %; MEAN CORPUSCULAR HEMOGLOBIN 25.5 pg (27.0-31.0); MEAN CORPUSCULAR HGB CONC 30.5 g/dL (32.0-36.0); MEAN CORPUSCULAR VOLUME 83.6 fL (81.0-99.0); MEAN PLATELET VOLUME 10.4 fL (7.9-10.8); MONOCYTES # (AUTO) 0.5 10^3/uL (0.0-1.0); MONOCYTES % (AUTO) 6.6 %; NEUTROPHILS # (AUTO) 3.6 10^3/uL (1.5-6.6); NEUTROPHILS % (AUTO) 52.1 %; PLT - PLATELET COUNT 394 10^3/uL (130-450); RED BLOOD COUNT 4.51 10^6/uL (4.20-5.40); RED CELL DISTRIBUTION WIDTH 15.6 % (12.0-15.0)
[2023-08-29 18:07] LABS: CALCIUM 9.8 mg/dL (8.5-10.3); CREATININE 0.9 mg/dL (0.6-1.3); POTASSIUM 4.1 mmol/L (3.5-4.5)
[2023-08-29 20:42] LABS: INFLUENZA A- RESP PCR PANEL NOT DETECTED; INFLUENZA B - RESP PCR PANEL NOT DETECTED; RSV- RESP PCR PANEL NOT DETECTED; SARS-CoV-2 -RESP PCR PANEL NOT DETECTED
== END 2023-08-29 23:59 | disposition home or self-care (01) ==
LOC: LAB.N 08:00
PROVIDERS: ATTEND Family Medicine
DX: R07.81 Pleurodynia (principal)
CPT/HCPCS: 36415; 80048; 84484; 85025; 85651; 87637

== ENCOUNTER 2024-02-13 10:12 | Outpatient (CLI) | payer MEDICAID | END 2024-02-13 10:13 | disposition critical access hospital (66) | LOC: EMS 10:12 | DX: R07.89 Other chest pain (principal); R00.0 Tachycardia, unspecified; R42 Dizziness and giddiness; H53.8 Other visual disturbances | CPT/HCPCS: A0425; A0427; A0999 ==

== ENCOUNTER 2024-02-13 10:35 | Emergency (ER) | payer MEDICAID ==
[2024-02-13 11:09] LABS: BASOPHILS # (AUTO) 0.1 10^3/uL (0.0-0.1); EOSINOPHILS # (AUTO) 0.1 10^3/uL (0.0-0.7); EOSINOPHILS % (AUTO) 0.6 %; HCT - HEMATOCRIT 36.9 % (37.0-47.0); HGB - HEMOGLOBIN 11.6 g/dL (12.0-16.0); LYMPHOCYTES # (AUTO) 1.5 10^3/uL (1.5-3.5); LYMPHOCYTES % (AUTO) 19.9 %; MEAN CORPUSCULAR HEMOGLOBIN 27.2 pg (27.0-31.0); MEAN CORPUSCULAR HGB CONC 31.4 g/dL (32.0-36.0); MEAN CORPUSCULAR VOLUME 86.4 fL (81.0-99.0); MEAN PLATELET VOLUME 9.3 fL (7.9-10.8); MONOCYTES # (AUTO) 0.6 10^3/uL (0.0-1.0); MONOCYTES % (AUTO) 7.9 %; NEUTROPHILS # (AUTO) 5.4 10^3/uL (1.5-6.6); NEUTROPHILS % (AUTO) 70.5 %; PLT - PLATELET COUNT 302 10^3/uL (130-450); RED BLOOD COUNT 4.27 10^6/uL (4.20-5.40); RED CELL DISTRIBUTION WIDTH 15.8 % (12.0-15.0); WHITE BLOOD COUNT 7.7 x10^3/uL (4.8-10.8)
[2024-02-13 11:30] LABS: TROPONIN I HIGH SENSITIVITY 5.3 ng/L (2.3-14.8)
[2024-02-13 11:33] LABS: ALBUMIN 4.3 g/dL (3.2-5.5); ALBUMIN/GLOBULIN RATIO 1.5 (1.0-2.2); BILIRUBIN,TOTAL 0.5 mg/dL (0.2-1.0); CALCIUM 9.6 mg/dL (8.5-10.3); CREATININE 0.9 mg/dL (0.6-1.3); POTASSIUM 3.6 mmol/L (3.5-4.5); TOTAL PROTEIN 7.1 g/dL (6.4-8.9)
--- NOTE | 2024-02-13 11:43 | ED Physician Documentation ---
PD HPI CHEST PAIN - Stated complaint Stated Complaint: CHEST PX - Chief complaint Chief Complaint: Cardiac - History obtained from History obtained from: Patient - Additional information Additional information: This is a 33-year-old female who reports Past medical history of asthma who presents with feeling of heart racing particular when she stands up and this is associated with the epigastric discomfort that Is nonradiating. She noticed an episode last night and then again today. Lasted about 20 minutes each time. She states when these episodes occur she feels like she cannot breeze though she states she is breathing normally she does not feel like she is getting oxygen. She has no syncope or presyncope, no abdominal pain nausea vomiting or diarrhea, no urinary symptoms. She has had a cough for about 3 weeks but states it is improving, she does not feel like her asthma is an exacerbation. She states she "lives on caffeine," and did drink a red bull just prior to arrival. She also states she believes she has ADHD but is not on any medication. Review of Systems Constitutional: reports: Reviewed and negative Eyes: reports: Reviewed and negative Ears: reports: Reviewed and negative Nose: reports: Reviewed and negative Throat: reports: Reviewed and negative Cardiac: reports: Chest pain / pressure, Palpitations Respiratory: reports: Cough (Cough for the past 3 weeks but improving) GI: reports: Reviewed and negative : reports: Reviewed and negative Skin: reports: Reviewed and negative Musculoskeletal: reports: Reviewed and negative Neurologic: reports: Reviewed and negative PD PAST MEDICAL HISTORY - Past Medical History Past Medical History: Yes Respiratory: Asthma - Past Surgical History 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 - Present Medications Home Medications: Ambulatory Orders Medication Instructions Recorded Confirmed Ibuprofen 800 mg PO TID 05/18/18 05/18/18 Oxycodone HCl/Acetaminophen 1 each PO Q6HR PRN #15 tablet 05/18/18 [Percocet 5-325 mg Tablet] oxyCODONE/ACET 5/325 [Percocet 5 1 each PO Q4-6H 05/18/18 05/18/18 mg/325 mg] Hydrocodone/Acetaminophen 1 - 2 each PO Q6H PRN #14 tablet 08/18/18 [Hydrocodon-Acetaminophen 5-325] Ibuprofen [Motrin] 800 mg PO Q8H PRN #30 tablet 01/15/22 cephALEXin [Keflex] 500 mg PO Q6H #28 cap 01/15/22 oxyCODONE [Roxicodone] 5 mg PO DAILY PRN #7 tablet 01/15/22 - Allergies Allergies/Adverse Reactions: Allergies Allergy/AdvReac Type Severity Reaction Status Date / Time latex AdvReac Mild Rash Verified 02/13/24 10:53 adhesive tape AdvReac Rash Verified 02/13/24 10:53 - Social History Does the pt smoke?: No Smoking Status: Never smoker Does the pt drink ETOH?: Yes Does the pt have substance abuse?: No - Immunizations Immunizations are current?: Yes - POLST Patient has POLST: No PD ED PE NORMAL - Vitals Vital signs reviewed: Yes - General General: Alert and oriented X 3, No acute distress, Well developed/nourished - HEENT HEENT: Atraumatic, Moist mucous membranes, Pharynx benign - Neck Neck: Supple, no meningeal sign, No JVD - Cardiac Cardiac: RRR, No murmur, No gallop, No rub, Strong equal pulses - Respiratory Respiratory: No respiratory distress, Clear bilaterally - Abdomen Abdomen: Normal bowel sounds, Soft, Non tender, Non distended - Derm Derm: Normal color, Warm and dry, No rash - Extremities Extremities: No deformity, No tenderness to palpate, Normal ROM s pain, No edema, No calf tenderness / cord - Neuro Neuro: Alert and oriented X 3 Eye Opening: Spontaneous Motor: Obeys Commands Verbal: Oriented GCS Score: 15 Results - Vitals Vitals: Vital Signs - 24 hr 02/13/24 02/13/24 10:48 12:40 Temperature 36.9 C Heart Rate 107 H 85 Respiratory 18 18 Rate Blood Pressure 137/75 H 104/68 O2 Saturation 99 100 Oxygen O2 Source Room air - EKG (time done) No standard instances EKG releavant findings:: EKG personally interpreted by author of this note. Relevant findings are: Rate: Rate (enter#) (82) Rhythm: NSR [place]: Normal Intervals: Normal [place] QRS: Normal Ischemia: Normal ST segments Computer interpretation: Agree with computer - Labs Labs: Laboratory Tests 02/13/24 02/13/24 02/13/24 11:04 11:04 12:05 WBC 7.7 RBC 4.27 Hgb 11.6 L Hct 36.9 L MCV 86.4 MCH 27.2 MCHC 31.4 L RDW 15.8 H Plt Count 302 MPV 9.3 Neut # (Auto) 5.4 Lymph # (Auto) 1.5 [place] # (Auto) 0.6 Eos # (Auto) 0.1 Baso # (Auto) 0.1 Absolute Nucleated RBC 0.00 Nucleated RBC % 0.0 D-Dimer 203.4 Sodium 138 Potassium 3.6 Chloride 101 Carbon Dioxide 30 Anion Gap 7.0 BUN 9 Creatinine 0.9 Estimated GFR (MDRD) 72 L Glucose 116 H Calcium 9.6 Total Bilirubin 0.5 AST 46 H ALT 34 Alkaline Phosphatase 57 Troponin I High Sens 5.3 Total Protein 7.1 Albumin 4.3 Globulin 2.8 Albumin/Globulin Ratio 1.5 Lipase 70 PD Medical Decision Making - ED course Complexity details: reviewed results, re-evaluated patient, considered differential, d/w patient ED course: 33-year-old female presented with tachycardia and epigastric pain as described in HPI. Patient is well-appearing on initial exam, afebrile nontoxic, no acute distress. At rest, patient's heart rate is normal, she has a normal blood pressure, but with standing the patient's blood pressure did jump up into the 130s briefly before going back down to the 80s while standing. She did not have associated hypotension with that however. This does not occur every time patient stands up but does occur occasionally and this was noted by me on physical exam. Differentials considered then included dehydration, POTS, caffeine and used tachycardia, paroxysmal SVT, PE among others. We obtained lab work is all reassuring including a negative troponin and a D-dimer within normal limits, she does not have signs of dehydration or electrolyte abnormalities or acute anemia on exam though is chronically mildly anemic. Patient's EKG shows normal sinus rhythm, no acute ischemic changes, no signs of WPW or other acute findings. Chest x-ray is negative. I suspect this patient has a postural tachycardia though this may be secondary to her excess caffeine use. Encouraged her to cut back on caffeine, follow-up with PCP for possible Zio patch and cardiology consultation. She was encouraged to increase her water intake, decrease caffeine intake, consider compression stockings, increasing salt intake in her diet to see if these things help. We discussed medication though at this time we will hold off on any medication until cardiology evaluation. Return precautions reviewed if any new or worsening symptoms. Departure - Departure Disposition: 01 Home, Self Care Clinical Impression: Tachycardia, Atypical chest pain Condition: Good Instructions: ED Chest Pain Atypical Unkn Cause Comments: It is not entirely clear what is causing your tachycardia (fast heart rate) when you stand but it certainly does seem to be postural (worse when you stand) and POTS is a consideration though thankfully you do not have low blood pressure when you stand. Your workup today was reassuring, your EKG here showed no acute findings, and your labs were all reassuring. Please continue to stay well hydrated, and aim for 3L of fluid daily with increased salt intake. Recommend follow-up with your primary doctor for referral to cardiology and a Zio patch monitoring. For now, continue to stay well hydrated, avoid caffeine, and move slowly from seated to standing position. Compression stockings may be helpful. Propranolol may be useful, but follow up with pcp/cardiology to discuss. There are some other medications available as well that they may speak with you about. Forms: PCP List
--- NOTE | 2024-02-13 11:44 | XRAY Report ---
PROCEDURE: Chest 1V INDICATIONS: Chest pain TECHNIQUE: One view of the chest was acquired. COMPARISON: None. FINDINGS: Surgical changes and devices: None. Lungs and pleura: No pleural effusions or pneumothorax. Lungs are clear. Mediastinum: Mediastinal contours appear normal. Heart size is normal. Bones and chest wall: No suspicious bony lesions. Overlying soft tissues appear unremarkable. IMPRESSION: No acute cardiopulmonary process. Reviewed by: Razia Brown MD, PhD on 02/13/2024 11:43 AM PDT Approved by: Razia Brown MD, PhD on 02/13/2024 11:43 AM PDT Station ID: [id number]
[2024-02-13 12:47] VITALS: BP 104/68; O2SAT 100
== END 2024-02-13 12:40 | disposition home or self-care (01) ==
LOC: ED 10:35
DX: R00.0 Tachycardia, unspecified (principal); R07.89 Other chest pain
CPT/HCPCS: 36415; 80053; 83690; 84484; 85025; 85379; 93005; 99283; 99284

== ENCOUNTER 2024-02-27 09:20 | Outpatient (CLI) | payer MEDICAID ==
[2024-02-27 14:23] LABS: CHLAMYDIA TRACHOMATIS DNA NEGATIVE (NEGATIVE); NEISSERIA GONORRHOEAE DNA NEGATIVE (NEGATIVE)
[2024-02-27 17:45] LABS: BACTERIAL VAGINOSIS DNA NEGATIVE (NEGATIVE); CANDIDA KRUSEI DNA NEGATIVE (NEGATIVE); TRICHOMONAS VAGINALIS DNA NEGATIVE (NEGATIVE)
[2024-02-27 17:46] LABS: CANDIDA GLABRATA DNA NEGATIVE (NEGATIVE); CANDIDA GROUP DNA POSITIVE (NEGATIVE)
[2024-02-28 04:10] LABS: HIV SCREEN 4TH GENERATION Non Reactive (Non Reactive)
[2024-02-28 05:14] LABS: HSV 1 IGG TYPE SPEC 4.94 index (0.00-0.90); HSV 2 IGG TYPE SPEC <0.91 index (0.00-0.90)
[2024-02-28 09:11] LABS: RPR Non Reactive (Non Reactive)
[2024-02-29 01:10] LABS: HCV AB Non Reactive (Non Reactive)
== END 2024-02-27 11:05 | disposition home or self-care (01) ==
LOC: LAB.N 09:20
PROVIDERS: ATTEND Physician Assistant Medical
DX: Z11.3 Encounter for screening for infections with a predominantly sexual mode of transmission (principal)
CPT/HCPCS: 81514; 86592; 86695; 86696; 86803; 87389; 87491; 87591; 87661

== ENCOUNTER 2024-04-02 19:01 | Emergency (ER) | payer MEDICAID ==
--- NOTE | 2024-04-02 19:35 | ED Physician Documentation ---
PD HPI FEMALE - Stated complaint Stated Complaint: FEVER/SHAKY/SWEATS - Chief complaint Chief Complaint: Abd Pain - History obtained from History obtained from: Patient, Friend - History of Present Illness Timing - onset: How many days ago (4) Timing - duration: Days (4) Timing - details: Gradual onset, Still present Associated symptoms: Fever, Back pain, Dysuria OB-COMMERCIAL HVAC TECHNICIAN History: Tubal ligation Similar symptoms before: Has not had sx before Recently seen: Emergency Dept - Additional information Additional information: Meagan Chou is a 33-year-old female who presents to the emergency department today with fever vomiting and flank pain. She has had some urinary urgency as well and is now producing less urine. She presents to the emergency department febrile and tachycardic. She came to the Emergency Department today versus yesterday because of high fever. She has had some dry heaves and she has taken some Tylenol prior to coming to the emergency department. Review of Systems Constitutional: reports: Fever, Chills Eyes: denies: Decreased vision Ears: denies: Ear pain Nose: denies: Rhinorrhea / runny nose, Congestion Throat: denies: Sore throat Cardiac: denies: Chest pain / pressure, Palpitations Respiratory: denies: Dyspnea, Cough GI: reports: Nausea, Vomiting, Diarrhea (yesterday X1). denies: Abdominal Pain : reports: Dysuria Musculoskeletal: reports: Back pain. 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 - Present Medications Home Medications: Ambulatory Orders Medication Instructions Recorded Confirmed Sulfamethox/Trimeth 800/160 1 each PO BID #14 tablet 04/02/24 [Bactrim Ds] - Allergies Allergies/Adverse Reactions: Allergies Allergy/AdvReac Type Severity Reaction Status Date / Time latex AdvReac Mild Rash Verified 04/02/24 19:06 adhesive tape AdvReac Rash Verified 04/02/24 19:06 - Social History Does the pt smoke?: No Smoking Status: Never smoker Does the pt drink ETOH?: Yes Does the pt have substance abuse?: No - Immunizations Immunizations are current?: Yes - POLST Patient has POLST: No PD ED PE NORMAL - Vitals Vital signs reviewed: Yes (Febrile tachycardic and hypertensive) - General General: Alert and oriented X 3, No acute distress, Well developed/nourished - HEENT HEENT: Atraumatic, PERRL, EOMI - Neck Neck: Supple, no meningeal sign, No bony TTP - Cardiac Cardiac: No murmur, Other (Tachycardia to 120) - Respiratory Respiratory: No respiratory distress, Clear bilaterally - Abdomen Abdomen: Normal bowel sounds, Soft, Non tender, Non distended, No organomegaly - Back Back: No spinal TTP, Other (Flank pain is present bilaterally) - Derm Derm: Normal color, Warm and dry, No rash - Extremities Extremities: No deformity, No edema - Neuro Neuro: Alert and oriented X 3, 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2 Neut # (Auto) 8.3 H Lymph # (Auto) 0.6 L [place] # (Auto) 0.5 Eos # (Auto) 0.0 Baso # (Auto) 0.1 Absolute Nucleated RBC 0.00 Nucleated RBC % 0.0 Sodium Potassium Chloride Carbon Dioxide Anion Gap BUN Creatinine Estimated GFR (MDRD) Glucose Lactic Acid Calcium Total Bilirubin AST ALT Alkaline Phosphatase Total Protein Albumin Globulin Albumin/Globulin Ratio Lipase Urine Color YELLOW Urine Clarity SL Urine pH 8.0 H Ur Specific [place] 1.015 Urine Protein 100 H Urine Glucose (UA) NEGATIVE Urine Ketones NEGATIVE Urine Occult Blood MODERATE H Urine Nitrite NEGATIVE Urine Bilirubin NEGATIVE Urine Urobilinogen 1 (NORMAL) Ur Leukocyte Esterase TRACE H Urine RBC 0-5 Urine WBC 11-25 H Urine WBC Clumps PRESENT Ur Epithelial Cells FEW Renal Tubular Ur Squamous Epith Cells FEW Squamous Urine Bacteria Few Ur Microscopic Review INDICATED Urine Culture Comments INDICATED Urine HCG, Qual NEGATIVE 04/02/24 04/02/24 19:20 19:20 WBC RBC Hgb Hct MCV MCH MCHC RDW Plt Count MPV Neut # (Auto) Lymph # (Auto) [place] # (Auto) Eos # (Auto) Baso # (Auto) Absolute Nucleated RBC Nucleated RBC % Sodium 133 L Potassium 3.7 Chloride 98 L Carbon Dioxide 26 Anion Gap 9.0 BUN 7 Creatinine 1.0 Estimated GFR (MDRD) 63 L Glucose 175 H Lactic Acid 1.5 Calcium 9.5 Total Bilirubin 0.8 AST 42 ALT 34 Alkaline Phosphatase 61 Total Protein 7.6 Albumin 4.5 Globulin 3.1 Albumin/Globulin Ratio 1.5 Lipase 48 Urine Color Urine Clarity Urine pH Ur Specific [place] Urine Protein Urine Glucose (UA) Urine Ketones Urine Occult Blood Urine Nitrite Urine Bilirubin Urine Urobilinogen Ur Leukocyte Esterase Urine RBC Urine WBC Urine WBC Clumps Ur Epithelial Cells Ur Squamous Epith Cells Urine Bacteria Ur Microscopic Review Urine Culture Comments Urine HCG, Qual Procedures - IVC sono (time) 1927 Bedside IVC sono: IVC measures (cm) (1.22), IVC collapsed c insp (cm) (complete), Dehydration (est 1 liter deficit) PD Medical Decision Making - ED course Complexity details: reviewed old records, reviewed results, re-evaluated patient, considered differential, d/w patient, d/w family Reviewed Lab Results: We reviewed a complete blood count showing a normal white blood cell count normal hemoglobin hematocrit and platelets chemistries showed a low serum sodium at 133 kidney and liver function normal lactate 1.5 blood glucose is elevated at 175. Urinalysis is negative for glucose in the urine there is protein in the urine moderate occult blood and trace leukocyte Estrace there are 11-25 white blood cells per high-powered field and clumps of white blood cells. There are few bacteria. test is negative.I interpreted these laboratory test indicate the patient has urinary tract infection and with her fever and flank pain with tenderness I am diagnosing pyelonephritis. The patient flagged for sepsis when she arrived here she has a normal lactate and normal white blood cell count. ED course: 33-year-old female presents to the emergency department with fever tachycardia and hypertension with flank pain nausea and dysuria. On arrival she appears to have pyelonephritis. She has taken some Tylenol prior to coming to the emergency department. She still has 7 out of 10 flank pain. She is administered a liter of saline and a gram of Rocephin 30 mg of Toradol and 4 mg of Zofran intravenously. A workup is ensued. She did flagged for sepsis on arrival to the emergency department. Departure - Departure Disposition: 01 Home, Self Care Clinical Impression: Pyelonephritis Condition: Stable Instructions: ED Kidney Infec Female Follow-Up: [facility] [Provider Group] Prescriptions: Sulfamethox/Trimeth 800/160 [Bactrim Ds] 1 each PO BID #14 tablet Comments: Meagan, today it looks like you have pyelonephritis or infection in your kidneys. This is in your urinary system and we are prescribing an antibiotic sulfamethoxazole trimethoprim that is concentrated in the urine. This has been E scribed to the [facility] in [place]. Today you were given Rocephin by vein and this should be good for 24 hours. My recommendation is to continue to take Tylenol and Advil for pain and fever. These 2 medications can be given together and the Tylenol needs to be given every 4 hours the Advil should not be given more often than every 8 hours. Be certain to take the Advil with food as it irritates the lining of everyone's stomach. Our expectation with treatment are in proving and all of your symptoms day by day. Sometimes the pain persists and sometimes a second evaluation is required. Your urine did make the grade for culture and we should have sensitivities reported on the organism in the urine within 2 days. If you get a telephone call from us this indicates that the organism was not sensitive to the antibiotic we put you on. Forms: PCP List
[2024-04-02 19:39] LABS: BASOPHILS # (AUTO) 0.1 10^3/uL (0.0-0.1); BASOPHILS % (AUTO) 0.9 %; EOSINOPHILS % (AUTO) 0.1 %; HCT - HEMATOCRIT 38.3 % (37.0-47.0); HGB - HEMOGLOBIN 12.5 g/dL (12.0-16.0); LYMPHOCYTES # (AUTO) 0.6 10^3/uL (1.5-3.5); LYMPHOCYTES % (AUTO) 6.7 %; MEAN CORPUSCULAR HEMOGLOBIN 28.3 pg (27.0-31.0); MEAN CORPUSCULAR HGB CONC 32.6 g/dL (32.0-36.0); MEAN CORPUSCULAR VOLUME 86.8 fL (81.0-99.0); MEAN PLATELET VOLUME 10.2 fL (7.9-10.8); MONOCYTES # (AUTO) 0.5 10^3/uL (0.0-1.0); MONOCYTES % (AUTO) 5.6 %; NEUTROPHILS # (AUTO) 8.3 10^3/uL (1.5-6.6); NEUTROPHILS % (AUTO) 86.5 %; PLT - PLATELET COUNT 217 10^3/uL (130-450); RED BLOOD COUNT 4.41 10^6/uL (4.20-5.40); RED CELL DISTRIBUTION WIDTH 16.1 % (12.0-15.0); WHITE BLOOD COUNT 9.6 x10^3/uL (4.8-10.8)
[2024-04-02 19:45] LABS: ALBUMIN 4.5 g/dL (3.2-5.5); ALBUMIN/GLOBULIN RATIO 1.5 (1.0-2.2); BILIRUBIN,TOTAL 0.8 mg/dL (0.2-1.0); CALCIUM 9.5 mg/dL (8.5-10.3); POTASSIUM 3.7 mmol/L (3.5-4.5); TOTAL PROTEIN 7.6 g/dL (6.4-8.9)
[2024-04-02] MEDS ORDERED: cefTRIAXone 1 GM VIAL ONE (19:50)
[2024-04-02] MEDS: ONDANSETRON 4 MG/2 ML VIAL IVP STA (19:52)
[2024-04-02] MEDS: SODIUM CHLORIDE 0.9% 1,000 ML IV STA (19:52)
[2024-04-02] MEDS: KETOROLAC 30 MG/ML VIAL IVP STA (19:54)
[2024-04-02 19:55] LABS: BILIRUBIN,URINE NEGATIVE (NEGATIVE); GLUCOSE, URINE (UA) NEGATIVE (NEGATIVE); KETONES,URINE (UA) NEGATIVE (NEGATIVE); LEUKOCYTE ESTERASE, URINE TRACE (NEGATIVE); NITRITE,URINE NEGATIVE (NEGATIVE); OCCULT BLOOD,URINE MODERATE (NEGATIVE); PROTEIN,URINE 100 mg/dL (NEGATIVE); UROBILINOGEN,URINE 1 (NORMAL) E.U./dL (NORMAL)
[2024-04-02 19:56] LABS: CLARITY,URINE SL (CLEAR)
[2024-04-02] MEDS: cefTRIAXone 1 GM in SODIUM CHLORIDE 0.9% MINIBAG 100 ML IV STA (19:56)
[2024-04-02 19:58] LABS: HCG UR QUAL NEGATIVE
[2024-04-02 20:12] LABS: BACTERIA,URINE Few /HPF (None Seen); EPITHELIAL CELLS,UR FEW Renal Tubular /HPF (<= Few); RBC,URINE 0-5 /HPF (0-5); SQUAMOUS EPITHELIAL CELL,UR FEW Squamous (<= Few); WBC CLUMPS,URINE PRESENT
[2024-04-02 20:50] VITALS: BP 112/58; O2SAT 100
== END 2024-04-02 20:45 | disposition home or self-care (01) ==
LOC: ED 19:01
DX: N12 Tubulo-interstitial nephritis, not specified as acute or chronic (principal); E86.0 Dehydration
CPT/HCPCS: 36415; 80053; 81001; 81003; 81025; 83605; 83690; 85025; 87040; 87086; 87154; 87181; 96365; 96375; 99284

== ENCOUNTER 2024-04-03 08:35 | Inpatient (IN) | payer MEDICAID ==
--- NOTE | 2024-04-03 08:50 | ED Physician Documentation ---
PD HPI ABD PAIN - Stated complaint Stated Complaint: SEPSIS - Chief complaint Chief Complaint: Abd Pain - History obtained from History obtained from: Patient - Additional information Additional information: 33-year-old woman with history of asthma was seen by my partner last night for pyelonephritis with right flank pain fevers, shaking chills. In the interim her blood cultures have come back preliminarily positive both for E. coli and she was asked to return to the emergency department. She says she is no longer having shaking chills but the flank pain and headache have worsened. She has no history of urologic issues. She did receive a dose of ceftriaxone prior to discharge last evening. 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 - Present Medications Home Medications: Ambulatory Orders Medication Instructions Recorded Confirmed Sulfamethox/Trimeth 800/160 1 each PO BID #14 tablet 04/02/24 [Bactrim Ds] - Allergies Allergies/Adverse Reactions: Allergies Allergy/AdvReac Type Severity Reaction Status Date / Time latex AdvReac Mild Rash Verified 04/03/24 08:38 adhesive tape AdvReac Rash Verified 04/03/24 08:38 - Social History Does the pt smoke?: No Smoking Status: Never smoker Does the pt drink ETOH?: Yes Does the pt have substance abuse?: No - Immunizations Immunizations are current?: Yes - POLST Patient has POLST: No PD ED PE NORMAL - Vitals Vital signs reviewed: Yes (Resting tachycardia) - General General: Alert and oriented X 3, No acute distress - Abdomen Abdomen: Normal bowel sounds, Soft, Non tender - Back Back: Other (Moderate right CVA tenderness) Results - Vitals Vitals: Vital Signs - 24 hr 04/03/24 04/03/24 08:38 10:59 Temperature 36.9 C Heart Rate 124 H 91 Respiratory 16 16 Rate Blood Pressure 134/103 H 119/76 O2 Saturation 98 99 Oxygen O2 Source Room air - Labs Labs: Laboratory Tests 04/03/24 04/03/24 04/03/24 08:51 08:51 08:51 WBC 12.8 H RBC 4.35 Hgb 12.1 Hct 38.2 MCV 87.8 MCH 27.8 MCHC 31.7 L RDW 16.0 H Plt Count 205 MPV 9.8 Neut # (Auto) 10.9 H Lymph # (Auto) 0.9 L Nolan # (Auto) 0.8 Eos # (Auto) 0.1 Baso # (Auto) 0.1 Absolute Nucleated RBC 0.00 Nucleated RBC % 0.0 Sodium 136 Potassium 3.7 Chloride 103 Carbon Dioxide 24 Anion Gap 9.0 BUN 8 Creatinine 0.9 Estimated GFR (MDRD) 72 L Glucose 110 H Lactic Acid 0.8 Calcium 9.0 Total Bilirubin 1.0 AST 86 H ALT 48 Alkaline Phosphatase 54 Total Protein 6.9 Albumin 4.1 Globulin 2.8 Albumin/Globulin Ratio 1.5 PD Medical Decision Making - ED course ED course: 33-year-old woman returns to the emergency department with 2 out of 2 positive blood cultures preliminarily positive for E. coli. She is tachycardic but nontoxic-appearing. Will obtain third blood culture, repeat basic labs, and CT KUB to rule out obstruction. 33-year-old woman returns after being seen last night and now fit carlos odom with E. coli bacteremia. CT ruling out obstruction. Does have a leukocytosis at 12.8 now which she did not previously. CBC and CMP were otherwise unremarkable. Received IV Rocephin and IV fluids and plan to admit pending cultures and speciation. There may be some delay to admission as the hospital is full. Spoke with Dr. Shaffer for admission at 11:22 AM. Departure - Departure Disposition: [facility] DC/Xfer Clinical Impression: Pyelonephritis, Bacteremia due to Escherichia coli Sepsis Qualifiers: Sepsis type: Escherichia coli Sepsis acute organ dysfunction status: without acute organ dysfunction Qualified Code(s): A41.51 - Sepsis due to Escherichia coli [E. coli] Forms: PCP List
[2024-04-03 09:00] LABS: BASOPHILS # (AUTO) 0.1 10^3/uL (0.0-0.1); BASOPHILS % (AUTO) 0.6 %; EOSINOPHILS # (AUTO) 0.1 10^3/uL (0.0-0.7); EOSINOPHILS % (AUTO) 0.7 %; HCT - HEMATOCRIT 38.2 % (37.0-47.0); HGB - HEMOGLOBIN 12.1 g/dL (12.0-16.0); LYMPHOCYTES # (AUTO) 0.9 10^3/uL (1.5-3.5); MEAN CORPUSCULAR HEMOGLOBIN 27.8 pg (27.0-31.0); MEAN CORPUSCULAR HGB CONC 31.7 g/dL (32.0-36.0); MEAN CORPUSCULAR VOLUME 87.8 fL (81.0-99.0); MEAN PLATELET VOLUME 9.8 fL (7.9-10.8); MONOCYTES # (AUTO) 0.8 10^3/uL (0.0-1.0); MONOCYTES % (AUTO) 6.3 %; NEUTROPHILS # (AUTO) 10.9 10^3/uL (1.5-6.6); NEUTROPHILS % (AUTO) 85.1 %; PLT - PLATELET COUNT 205 10^3/uL (130-450); RED BLOOD COUNT 4.35 10^6/uL (4.20-5.40); WHITE BLOOD COUNT 12.8 x10^3/uL (4.8-10.8)
[2024-04-03] MEDS: cefTRIAXone 1 GM VIAL IVP STA (09:03)
[2024-04-03] MEDS: SODIUM CHLORIDE 0.9% 1,000 ML IV STA (09:04)
[2024-04-03] MEDS: HYDROmorphone 1 MG/ML CARPUJECT IVP STA (09:04)
[2024-04-03 09:12] LABS: ALBUMIN 4.1 g/dL (3.2-5.5); ALBUMIN/GLOBULIN RATIO 1.5 (1.0-2.2); CREATININE 0.9 mg/dL (0.6-1.3); POTASSIUM 3.7 mmol/L (3.5-4.5); TOTAL PROTEIN 6.9 g/dL (6.4-8.9)
--- NOTE | 2024-04-03 09:51 | CT Report ---
PROCEDURE: Abdomen/Pelvis WO INDICATIONS: urosepsis, eval for obstruction TECHNIQUE: A CT scan of the abdomen and pelvis was performed without the use of intravenous contrast. Images we re recorded and evaluated at appropriate window settings. Reformats: coronal and sagittal. For radiat ion dose reduction, the following was used: automated exposure control, adjustment of mA and/or kV ac cording to patient size. COMPARISON: CT abdomen and pelvis dated 08/18/2018. FINDINGS: Image quality: Diagnostic. Lower chest: Unremarkable. Liver: Hepatomegaly, moderate diffuse hepatic steatosis. Gallbladder: No radiopaque stones or wall thickening. Biliary tree: No intrahepatic or extrahepatic dilation, accounting for age. Spleen: Abnormal spleen size. Pancreas: No pancreatic ductal dilation. Adrenals: No adrenal nodule. Right Kidney: Unremarkable, without stones or hydronephrosis. Right Ureter: Unremarkable Left Kidney: Punctate 1 mm or less left middle pole stone. No hydronephrosis. Left Ureter: Unremarkable Stomach, bowel and peritoneum: No gastric or small bowel dilation. No abnormal wall thickening. No pa thologic free fluid. Normal appendix. Lymph nodes: No central or retroperitoneal adenopathy. Vessels: No infrarenal aortic aneurysm. Reproductive organs: Prominent cystic left adnexa measuring 4.2 x 3.2 cm.. Bladder: Bladder wall thickness is normal, accounting for underdistention. No calcified bladder stone s. Pelvic lymph nodes: No adenopathy by size criteria. Bones: No aggressive osseous abnormality. Incidental note made of mild central posterior disc protrus ion at L5-S1.. Other: No significant ventral or inguinal hernia. IMPRESSION: 1. No ureteral stone or hydronephrosis. 2. Punctate nonobstructing left renal stone. 3. Prominent cystic left adnexa. 4. Hepatomegaly, moderate diffuse hepatic steatosis. Reviewed by: Vaughn Quintero MD on 04/03/2024 9:50 AM PDT Approved by: Vaughn Quintero MD on 04/03/2024 9:50 AM PDT Station ID: [id number]
[2024-04-03] MEDS ORDERED: SODIUM CHLORIDE FLUSH 0.9% 10 ML SYRINGE IVP PRN (12:01)
--- NOTE | 2024-04-03 12:13 | HISTORY & PHYSICAL EXAMINATION ---
Chief Complaint - Chief Complaint Chief Complaint: flank pain History of Present Illness - Admitted From Admitted From:: Emergency Room - History Obtained From Records Reviewed: Yes History obtained from: Patient and emergency room physican, Dr. Phan Alanis - History of Present Illness HPI Comment/Other: Varsha Chou is a 33-year-old woman who presented to the emergency room on April 02, 2024 complaining of of flank pain. She reports she has not felt well for the last 4 days and complaints include flank pain, nausea and vomiting and fever. She was seen in the emergency on April 02, 2024 and received IV fluids and 1 g of ceftriaxone sown intravenously. She was sent home from the emergency room but then called back for positive blood cultures. 3 sets of blood cultures have been drawn and all are positive for E. coli. History - Past Medical History Respiratory: reports: Asthma MRSA Hx?: No - Past Surgical History /SUPPORT REPRESENTATIVE: reports: section - Substance History Use: Uses substance without health or social issues: Tobacco - POLST Patient has POLST: No Meds/Allgy - Allergies Allergies/Adverse Reactions: Allergies Allergy/AdvReac Type Severity Reaction Status Date / Time latex AdvReac Mild Rash Verified 04/03/24 08:38 adhesive tape AdvReac Rash Verified 04/03/24 08:38 Review of Systems - Constitutional Constitutional: reports: Fever, Chills, Weakness - Cardiovascular Cariovascular: denies: Chest pain, Syncope - Respiratory Respiratory: reports: SOB with exertion. denies: Cough, Sputum production - Gastrointestinal Gastrointestinal: denies: Abdominal pain - Genitourinary Genitourinary: reports: Flank pain. denies: Dysuria Exam - Vital Signs Reviewed Vital Signs: Yes Vital Signs: Vital Signs x48h Temp Pulse Resp BP Pulse Ox 04/03/24 12:00 97 15 121/79 99 04/03/24 10:59 91 16 119/76 99 04/03/24 08:38 36.9 C 124 H 16 134/103 H 98 - Physical Exam General Appearance: positive: No acute distress, Alert Eyes Bilateral: positive: Conjunctivae nml Neck: positive: Thyroid nml, No JVD, Trachea midline Respiratory: positive: Other Cardiovascular: positive: Other Abdomen: positive: Other Skin: positive: No rash Extremities: positive: No pedal edema Neurologic/Psychiatric: positive: Oriented x3, Motor nml Conclusion/Plan - Problem List (1) Pyelonephritis Conclusion/Plan: Patient's symptoms of fever and chills and flank pain are consistent with pyelonephritis. Treatment has been initiated with ceftriaxone 1 g daily. Normal saline at 100 mL/hour for fluid hydration. Pain control with Trenary 5 mg every 4 hours as needed for pain Continue to monitor Patient does not meet criteria for sepsis with a qSOFA score of 0 and a NEWS s core of 2. (2) Bacteremia due to Escherichia coli Conclusion/Plan: Patient has an E. coli bacteremia with 3 positive blood cultures.Await sensitivities. - Lab Results Fish Bones: 04/03/24 08:51 04/03/24 08:51
[2024-04-03] MEDS: SODIUM CHLORIDE 0.9% 1,000 ML IV SCH (12:55)
[2024-04-03] MEDS ORDERED: LACTATED RINGERS 1,000 ML IV SCH (13:00)
--- NOTE | 2024-04-03 15:26 | PHARMACY PROGRESS NOTE ---
- Best Possible Medication History Admit Date and Time: 04/03/24 1201 Processed by: Pharmacy Medication History completed: Yes Patient Interview: Completed Secondary Source(s): Insurance records (PT STATES THAT SHE TAKES NO HOME MEDICATIONS) As the person ultimately responsible for medication therapy, providers are able to order a medication from an existing home medication list in [facility] via the "Reconcile Routine" prior to Confirmation of that medication by technical support technician. Such practice is discouraged except when the physician, in their clinical judgment, deems that a medical need exists for a medication without regard to previous use.
[2024-04-03] MEDS: SODIUM CHLORIDE FLUSH 0.9% 10 ML SYRINGE IVP SCH (15:58)
[2024-04-03] MEDS: HYDROcod/ACETAM 5/325 MG TABLET PO PRN (16:05)
[2024-04-03 19:20] LABS: HCG UR QUAL NEGATIVE
[2024-04-04 04:34] LABS: HCT - HEMATOCRIT 30.4 % (37.0-47.0); HGB - HEMOGLOBIN 9.6 g/dL (12.0-16.0); MEAN CORPUSCULAR HEMOGLOBIN 28.5 pg (27.0-31.0); MEAN CORPUSCULAR HGB CONC 31.6 g/dL (32.0-36.0); MEAN CORPUSCULAR VOLUME 90.2 fL (81.0-99.0); MEAN PLATELET VOLUME 10.7 fL (7.9-10.8); RED BLOOD COUNT 3.37 10^6/uL (4.20-5.40); RED CELL DISTRIBUTION WIDTH 15.9 % (12.0-15.0); WHITE BLOOD COUNT 6.4 x10^3/uL (4.8-10.8)
[2024-04-04 04:49] LABS: CREATININE 0.8 mg/dL (0.6-1.3); MAGNESIUM 1.4 mg/dL (1.7-2.3); PHOSPHORUS 2.6 mg/dL (2.5-5.0); POTASSIUM 3.6 mmol/L (3.5-4.5)
[2024-04-04 08:26] VITALS: BP 127/73; O2SAT 97
[2024-04-04] MEDS: cefTRIAXone 1 GM in SODIUM CHLORIDE 0.9% MINIBAG 100 ML IV SCH (10:20)
[2024-04-04] MEDS: FLUCONAZOLE 100 MG TABLET PO ONE (11:10)
--- NOTE | 2024-04-04 14:54 | Discharge Plan ---
Discharge Plan Prescriptions: Magnesium Oxide [Mag Ox] 400 mg PO 0800 14 Days #14 tablet No Smoking: If you smoke, Please STOP! Call for help.
--- NOTE | 2024-04-04 14:57 | Discharge Plan ---
Discharge Plan Problem Reviewed?: Yes Disposition: Home, Self Care Condition: Good Prescriptions: HYDROcod/ACETAM 5/325 [[place] 5/325] 1 tab PO Q4HR PRN #14 tab PRN Reason: Pain 5 to 7 Magnesium Oxide [Mag Ox] 400 mg PO 0800 14 Days #14 tablet Diet: Regular Activity Restrictions: No Restrictions Shower Restrictions: No Driving Restrictions: No Weight Bearing: Full Weight Health Concerns: History of Present Illness: Varsha Chou is a 33-year-old woman who presented to the emergency room on April 02, 2024 complaining of of flank pain. She reports she has not felt well for the last 4 days and complaints include flank pain, nausea and vomiting and fever. She was seen in the emergency on April 02, 2024 and received IV fluids and 1 g of ceftriaxone sown intravenously. She was sent home from the emergency room but then called back for positive blood cultures. 3 sets of blood cultures have been drawn and all are positive for E. coli. Hospital Course: Varsha Chou was admitted to the hospital as an inpatient. During her hospital stay she received 2 doses of ceftriaxone over the course of approximately 36 hours. 3 sets of blood cultures were positive for E. coli. Sensitivities are pending. Patient reports that her flank pain has significantly improved. Her leukocytosis has resolved. She remains hemodynamically stable and can be discharged to home. Plan of Treatment: 1. Please continue all medications as prescribed. Please complete your full course of treatment with ciprofloxacin. If for some reason you decide not to take the ciprofloxacin because of an adverse reaction, please contact your primary care provider. 2. Please seek care at your primary care provider's office, acute care facility or emergency room if you develop fever greater than 101.5, nausea and vomiting, increased flank pain or have significant chills. 3. Please schedule to see your primary care provider in 2-4 weeks. 4. Please avoid consumption of alcohol while on antibiotics. 5. Please avoid consumption of alcohol and recommend not driving while using narcotic medication. Care Goals: Goal of care is to return to baseline function. Assessment: (1) Pyelonephritis Conclusion/Plan: Complete course of ciprofloxacin 500 mg twice daily for 7 days. Pain control with Tecopa 5 mg every 4 hours as needed for pain (2) Bacteremia due to Escherichia coli Conclusion/Plan: Patient has an E. coli bacteremia with 3 positive blood cultures.Await sensitivities. Await sensitivities. No Smoking: If you smoke, Please STOP! Call for help.
--- NOTE | 2024-04-04 14:57 | DISCHARGE SUMMARY ---
Discharge Summary Admit Date: 04/03/24 Discharge Date: 04/04/24 Discharging Provider: Tony Ibarra MD Primary Care Provider: Unkown Code Status: Attempt Resuscitation Condition at Discharge: Good Discharge Disposition: 01 Home, Self Care - DIAGNOSES Admission Diagnoses: (1) Pyelonephritis (2) Bacteremia due to Escherichia coli Discharge Diagnoses with Status of Each Condition: (1) Pyelonephritis (2) Bacteremia due to Escherichia coli - HPI History of Present Illness: Varsha Chou is a 33-year-old woman who presented to the emergency room on April 02, 2024 complaining of of flank pain. She reports she has not felt well for the last 4 days and complaints include flank pain, nausea and vomiting and fever. She was seen in the emergency on April 02, 2024 and received IV fluids and 1 g of ceftriaxone sown intravenously. She was sent home from the emergency room but then called back for positive blood cultures. 3 sets of blood cultures have been drawn and all are positive for E. coli. - HOSPITAL COURSE Hospital Course: Varsha Chou was admitted to the hospital as an inpatient. During her hospital stay she received 2 doses of ceftriaxone over the course of approximately 36 hours. 3 sets of blood cultures were positive for E. coli. Sensitivities are pending. Patient reports that her flank pain has significantly improved. Her leukocytosis has resolved. She remains hemodynamically stable and can be discharged to home. - ALLERGIES Allergies/Adverse Reactions: Allergies Allergy/AdvReac Type Severity Reaction Status Date / Time latex AdvReac Mild Rash Verified 04/03/24 08:38 adhesive tape AdvReac Rash Verified 04/03/24 08:38 - MEDICATIONS Home Medications: Ambulatory Orders Medication Instructions Recorded Confirmed Ciprofloxacin HCl 1 tablet PO BID 7 Days #14 tablet 04/04/24 HYDROcod/ACETAM 5/325 [Farber 5/325] 1 tab PO Q4HR PRN #14 tab 04/04/24 Magnesium Oxide [Mag Ox] 400 mg PO 0800 14 Days #14 tablet 04/04/24 - PHYSICAL EXAM AT DISCHARGE General Appearance: positive: No acute distress, Alert Eyes Bilateral: positive: Conjunctivae nml Neck: positive: No JVD, Trachea midline Respiratory: positive: Other (Good air exchange in all lung [place] no wheezing or crackles) Cardiovascular: positive: Other (Positive S1-S2 no extra heart sounds.) Abdomen: positive: Other (Soft nontender nondistended positive bowel sounds) Extremities: positive: No pedal edema Neurologic/Psychiatric: positive: Oriented x3, Motor nml - LABS Result Diagrams: 04/04/24 03:55 04/04/24 03:55 - QUALITY (Female Hip Fx Only) Was patient sent home on osteoporosis medication?: No - FOLLOW UP Follow Up: Please follow-up with your primary care provider in 2-4 weeks. - TIME SPENT Time Spent in Discharge (Minutes): 28
== END 2024-04-04 15:50 | disposition home or self-care (01) | DRG 690 ==
LOC: ED 08:35 → MS3 12:01
PROVIDERS: ADMIT Internal Medicine; ATTEND Internal Medicine
DX: N12 Tubulo-interstitial nephritis, not specified as acute or chronic (principal); B96.20 Unspecified Escherichia coli [E. coli] as the cause of diseases classified elsewhere; R00.0 Tachycardia, unspecified
CPT/HCPCS: 36415; 74176; 80048; 80053; 81025; 83605; 83735; 84100; 85025; 85027; 87040; A9270; J1170

== ENCOUNTER 2024-05-11 08:45 | Outpatient (CLI) | payer MEDICAID | END 2024-05-11 09:00 | disposition home or self-care (01) | LOC: LAB.N 08:45 | PROVIDERS: ATTEND Physician Assistant Medical | DX: R10.9 Unspecified abdominal pain (principal) | CPT/HCPCS: 87086 ==